=== PATIENT | female | born 1950 | race Hispanic/Latino ===

== ENCOUNTER 2018-03-13 06:16 | Day surgery (SDC) | payer MEDICARE ==
[2018-03-03 10:24] VITALS: BMI 31.8
[2018-03-13] MEDS ORDERED: Nitroglycerin 50mg in D5W 0 MG/0 ML BOTTLE IV ONE (06:43)
[2018-03-13] MEDS ORDERED: Iohexol 350mgl/ml 50 ML ONE (06:43)
[2018-03-13] MEDS ORDERED: Lidocaine 2% Inj (20ml) ONE (06:43)
[2018-03-13] MEDS ORDERED: Phenylephrine 10 mg/ml Inj ONE (06:43)
[2018-03-13] MEDS ORDERED: Iodixanol 320 MG/ML 100 ML BOTTLE IV ONE (06:43)
[2018-03-13] MEDS ORDERED: Iodixanol 320 MG/ML 200 ML BOTTLE IV ONE (06:43)
[2018-03-13 06:52] LABS: BASO # 0.07 K/mm3 (0.0-2.0); EOS # 0.3 (0.0-0.7); GRAN # 4.79 (1.4-6.5); GRAN % 65.6 % (50.0-68.0); HEMOGLOBIN 15.2 g/dL (12.0-16.0); LYMPH # 1.7 (1.2-3.4); LYMPH % 22.6 % (22.0-35.0); MEAN CELL VOLUME 90.9 fl (80.0-105.0); MEAN CORPUSCULAR HEMOGLOBIN 31.4 pg (25.0-35.0); MEAN CORPUSCULAR HGB CONC 34.5 g/dl (31.0-37.0); MEAN PLATELET VOLUME 10.5 fl (7.0-11.0); MONO # 0.5 (0.1-0.6); MONO % 6.8 % (1.0-6.0); RBC 4.84 10^6/uL (3.5-6.1); RED CELL DISTRIBUTION WIDTH 12.8 % (11.5-14.5); WHITE BLOOD COUNT 7.3 10^3/ul (4.5-11.0)
[2018-03-13 07:01] LABS: BLOOD UREA NITROGEN 25 mg/dL (7-21); CALCIUM 9.6 mg/dL (8.4-10.5); GFR AFRICAN-AMERICAN > 60; GFR NON-AFRICAN AMERICAN > 60; HDL CHOLESTEROL 39 mg/dL (29-60)
[2018-03-13 07:03] LABS: INR 0.91 (0.93-1.08); PARTIAL THROMBOPLASTIN TIME 27.2 Seconds (25.1-36.5); PROTHROMBIN TIME 10.5 SECONDS (9.4-12.5)
[2018-03-13 07:06] VITALS: RESP 18
[2018-03-13 07:12] LABS: LDL CHOLESTEROL 101 mg/dL (0-129)
[2018-03-13] MEDS ORDERED: Potassium Chloride 20 mEq ER Tab PO ONE (07:20)
[2018-03-13] MEDS ORDERED: Midazolam 2 MG/2 ML VIAL ONE ×2 (07:30→07:54)
[2018-03-13] MEDS ORDERED: Sodium Chloride 0.9% 1,000 ML IV SCH (08:45)
[2018-03-13 08:46] VITALS: TEMP 97.9
--- NOTE | 2018-03-13 10:45 | CARDCATH ---
PROCEDURE DATE: 03/13/2018 HISTORY: The patient is a 67-year-old woman with multiple cardiac risk factors including diabetes mellitus, hypertension and obesity who presents with an abnormal stress test. The patient is status post PTCA and stent several years ago. Because of this, a cardiac catheterization was recommended. PROCEDURE: Left heart catheterization with coronary arteriography and left ventriculogram. The right femoral artery was cannulated with a 6-Kinyarwanda sheath. There were no complications. I performed moderate sedation which included the presence of an independent trained observer that assisted in monitoring the patient's level of consciousness and physiologic status. After administration of Versed and fentanyl, my intra service time was 15 minutes. The findings on catheterization revealed a left ventricle that contracted normally. Estimated ejection fraction is 50%-55%. Her coronary anatomy revealed a right dominant circulation. The RCA revealed diffuse intimal irregularities with a patent stent in the midportion. The left main artery was unremarkable. The LAD and diagonal vessels were free of significant disease. The circumflex artery and obtuse marginal branches were free of significant disease. Angio-Seal was used to close the femoral artery site. The patient tolerated the procedure well. In summary, the procedure revealed single-vessel CAD with a patent stent in the RCA. LV function is normal. Given these findings, the patient will need to undergo a strict cardiac risk reduction program which includes weight loss as well as an exercise program. Jozef Angelo MD
[2018-03-13 11:53] VITALS: O2SAT 96
[2018-03-13 14:29] VITALS: BP 178/79; PULSE 82
== END 2018-03-13 15:10 | disposition home or self-care (01) ==
LOC: CATH 06:16
PROVIDERS: ATTEND Internal Medicine Cardiovascular Disease
DX: E66.9 Obesity, unspecified (principal); I10 Essential (primary) hypertension; E11.9 Type 2 diabetes mellitus without complications; I25.2 Old myocardial infarction; Z95.5 Presence of coronary angioplasty implant and graft
CPT/HCPCS: 36415; 80048; 80061; 85025; 85610; 85730; 86850; 86900; 93458; 99152; C1769; C2629; J1644; J2250; J3010; J7030; J7040; Q9966